=== PATIENT | male | born 1985 | race Caucasian/White ===

== ENCOUNTER → 2017-12-16 | Outpatient (CLI) | payer BC ==
--- NOTE | 2017-12-16 14:18 | RADIOLOGY IMAGING REPORT ---
FACILITY: [facility] [place] PATIENT NAME: Dominic Cantu : 1985 MR: [id number] V: [id number] EXAM DATE: ORDERING PHYSICIAN: HILDA HOLDER TECHNOLOGIST: [place] [facility] [place] Dominic Cantu : 1985 Visit/Account:[id number] Date of Sevice: 12/16/2017 GROIN ULTRASOUND HISTORY: Lymphadenopathy COMPARISON: None FINDINGS: Grayscale and color Doppler evaluation of the bilateral inguinal regions was performed. Bilateral inguinal lymph nodes measuring up to 3.8 x 1.4 x 2.0 cm on the right and 1.7 x 0.5 x 1.5 cm on the left. Most of the lymph nodes contain fatty hilum. Several lymph nodes do not IMPRESSION: 1. Bilateral inguinal lymph nodes most of which contain fatty hilum although a few do not. These co uld be reactive lymph nodes although lymphoproliferative disorder not entirely excluded. Consider sh ort interval follow-up ultrasound of the inguinal regions to evaluate for change. Alternatively cons ider CT scanning to evaluate for other compartmental lymphadenopathy in the chest, abdomen or pelvis. Report Dictated By: Anastacio Boo MD at 12/16/2017 2:09 PM Report E-Signed By: Anastacio Boo MD at 12/16/2017 2:13 PM WSN:[email or web address]
== END ==
LOC: US 07:11
PROVIDERS: ATTEND Physician Assistant
DX: R59.0 Localized enlarged lymph nodes (principal)
CPT/HCPCS: 76705

== ENCOUNTER → 2018-02-28 | Outpatient (REF) | LOC: AUD 09:30 | PROVIDERS: ATTEND Internal Medicine | DX: Z01.10 Encounter for examination of ears and hearing without abnormal findings (principal) | CPT/HCPCS: 92552 ==

== ENCOUNTER → 2019-03-21 | Outpatient (REF) | LOC: AUD 10:20 | PROVIDERS: ATTEND Internal Medicine | DX: Z01.12 Encounter for hearing conservation and treatment (principal) | CPT/HCPCS: 92552 ==